=== PATIENT | male | born 1965 | race Caucasian/White ===

== ENCOUNTER 2018-05-03 08:20 | Day surgery (SDC) | payer OTHER ==
[~2018-05-03] VITALS: Ht 177.8 cm; Wt 77.1 kg
[2018-05-03] MEDS ORDERED: INSULIN REGULAR, HUMAN 100 UNIT/ML VIAL IVP ONE (09:00)
[2018-05-03] MEDS ORDERED: INSULIN REGULAR, HUMAN 100 UNIT/ML VIAL SUBQ SCH (09:10)
[2018-05-03] MEDS ORDERED: LIDOCAINE 2% 1000 MG/50 ML VIAL INJ ONE (09:35)
[2018-05-03] MEDS: MORPHINE SULFATE 2 MG/ML SYR IVP PRN ×3 (10:28→12:05)
[2018-05-03] MEDS ORDERED: MORPHINE SULFATE 2 MG/ML SYR ONE (10:29)
== END 2018-05-03 12:55 | disposition home or self-care (01) ==
LOC: MMU 08:20 → MDS 08:20
PROVIDERS: ATTEND Internal Medicine Gastroenterology
DX: B19.20 Unspecified viral hepatitis C without hepatic coma (principal); I10 Essential (primary) hypertension; E11.9 Type 2 diabetes mellitus without complications; Z98.890 Other specified postprocedural states; Z79.899 Other long term (current) drug therapy
CPT/HCPCS: 47000; 76942; 82948; J1815; J2001; J2270; Q0092